=== PATIENT | female | born 1970 | race Two or more races ===

== ENCOUNTER 2017-02-12 17:50 | Emergency (ER) | payer MEDICAID ==
[~2017-02-12] VITALS: Ht 157.5 cm; Wt 74.4 kg
--- NOTE | 2017-02-12 18:48 | NUR ---
RECEIVED REPORT FROM [facility] FOR [facility]. URINE COLLECTED. SENT TO LAB. RADIOLOGY AT BEDSIDE FOR CXR
--- NOTE | 2017-02-12 19:28 | NUR ---
Patient discharged to home in stable condition. Written and verbal after care instructions given. Patient verbalizes understanding of instruction. ambulatory with a steady gait. instructed not to drive. pt verbalize understanding.
[2017-02-12 19:29] VITALS: BP 128/66
== END 2017-02-12 19:30 | disposition home or self-care (01) ==
LOC: ER 17:53
DX: F41.9 Anxiety disorder, unspecified (principal); J45.909 Unspecified asthma, uncomplicated; Z88.6 Allergy status to analgesic agent
CPT/HCPCS: 71010; 84703; 93005; 99284; A4606; Z7610